=== PATIENT | female | born 1985 ===

== ENCOUNTER 2016-08-13 18:25 | Emergency (ER) | payer MEDICAID ==
[2016-08-13 18:37] VITALS: BP 128/73; PULSE 79; RESP 16; TEMP 98; O2SAT 98; BMI 27.4
[2016-08-13] MEDS ORDERED: Sodium Chloride 0.9% 1,000 ML IV STA (19:12)
[2016-08-13 19:46] LABS: URINE BILIRUBIN NEGATIVE (NEGATIVE); URINE BLOOD TRACE-INTACT (NEGATIVE); URINE GLUCOSE (UA) NEGATIVE (NEGATIVE); URINE LEUKOCYTE ESTERASE NEGATIVE Leu/uL (NEGATIVE); URINE NITRATE NEGATIVE (NEGATIVE); URINE PROTEIN NEGATIVE mg/dL (<30 mg/dL); URINE UROBILINOGEN 0.2 E.U./dL (<1 E.U./dL)
[2016-08-13 19:48] LABS: URINE APPEARANCE CLEAR (CLEAR); URINE COLOR YELLOW (YELLOW)
[2016-08-13 19:53] LABS: BASO # 0.04 K/mm3 (0.0-2.0); BASO % 0.4 % (0.0-3.0); EOS # 0.2 (0.0-0.7); EOS % 1.8 % (1.5-5.0); GRAN % 59.6 % (50.0-68.0); HEMOGLOBIN 11.9 gm/dL (12.0-16.0); LYMPH # 3.4 (1.2-3.4); LYMPH % 31.3 % (22.0-35.0); MEAN CELL VOLUME 90.4 fL (80.0-105.0); MEAN CORPUSCULAR HEMOGLOBIN 31.7 pg (25.0-35.0); MEAN CORPUSCULAR HGB CONC 35.1 g/dl (31.0-37.0); MEAN PLATELET VOLUME 10.6 fl (7.0-11.0); MONO # 0.7 (0.1-0.6); MONO % 6.9 % (1.0-6.0); PLATELET COUNT 303 10^3/uL (120.0-450.0); RBC 3.75 10^6/uL (3.5-6.1); RED CELL DISTRIBUTION WIDTH 12.3 % (11.5-14.5); WHITE BLOOD COUNT 10.7 10^3/ul (4.5-11.0)
[2016-08-13 19:56] LABS: URINE BACTERIA FEW (NEG); URINE EPITHELIAL CELLS MANY /hpf (0-5); URINE RBC 0 - 2 /hpf (0-2); URINE WBC 0 - 2 /hpf (0-6)
[2016-08-13 20:02] LABS: ALB/GLOB RATIO 1.1 (1.1-1.8); ALBUMIN 3.9 g/dL (3.0-4.8); ALT/SGPT 23 U/L (7-56); AST/SGOT 16 U/L (15-39); BLOOD UREA NITROGEN 14 mg/dL (7-21); CALCIUM 9.4 mg/dL (8.4-10.5); GFR AFRICAN-AMERICAN > 60; GFR NON-AFRICAN AMERICAN > 60; LIPASE 43 U/L (23-300)
--- NOTE | 2016-08-13 21:05 | US ---
EXAM: US First Trimester, Transabdominal CLINICAL HISTORY: 31 years old, female; Pain; complicated by abdominal or pelvic pain; Lower; First trimester; Gestational age or lmp: 10 weeks 3 days; ; Additional info: Vaginal bleeding TECHNIQUE: Real-time transabdominal obstetrical ultrasound of the maternal pelvis and a first trimester with image documentation. COMPARISON: No relevant prior studies available. FINDINGS: Gestation: Single live intrauterine gestation. heart rate of 149 beats per minute. [place]-rump length of 3.49 cm, correlating with gestational age of 10 weeks 3 days. Uterus/cervix: No subchorionic hemorrhage. Cervical length = 3.7 cm. Trace fluid within cervical canal. Probable nabothian cyst. Ovaries: Normal ovaries. No adnexal masses. Free fluid: No significant free fluid. IMPRESSION: 1. Single live intrauterine gestation. 2. Incidental/non-acute findings are described above. EXAM: US , Transvaginal CLINICAL HISTORY: 31 years old, female; Pain; complicated by abdominal or pelvic pain; Lower; First trimester; Gestational age or lmp: 10 weeks 3 days; ; Additional info: Vaginal bleeding TECHNIQUE: Real-time transvaginal obstetrical ultrasound of the maternal pelvis and a first trimester with image documentation. Transvaginal imaging was used for better evaluation of the fetus and adnexa. COMPARISON: No relevant prior studies available. FINDINGS: Gestation: Single live intrauterine gestation. heart rate of 149 beats per minute. [place]-rump length of 3.49 cm, correlating with gestational age of 10 weeks 3 days. Uterus/cervix: No subchorionic hemorrhage. Cervical length = 3.7 cm. Trace fluid within cervical canal. Probable nabothian cyst. Ovaries: Normal ovaries. No adnexal masses. Free fluid: No significant free fluid.
--- NOTE | 2016-08-13 21:46 | ED PDOC ---
Arrival/HPI - General Chief Complaint: Abdominal Pain Time Seen by Provider: 08/13/16 19:06 Historian: Patient - History of Present Illness Narrative History of Present Illness (Text): 08/13/16 21:42 A 31 year old female with A0 presents to the emergency department complaining of lower abdominal pressure since earlier today. Patient reports minimal vaginal spotting. Patient notes nausea but denies any fever, chills, vomiting, diarrhea, abdominal pain, frequency, dysuria, hematuria, chest pain, shortness of breath, cough or any other complaints. Time/Duration: Other (today) Symptom Course: Unchanged Quality: Other Context: Home Past Medical History - Provider Review Nursing Documentation Reviewed: Yes - Psychiatric Hx Substance Use: No Family/Social History - Physician Review Nursing Documentation Reviewed: Yes Family/Social History: No Known Family HX Smoking Status: Never Smoked Hx Alcohol Use: No Hx Substance Use: No Allergies/Home Meds Allergies/Adverse Reactions: Allergies mushroom Allergy (Verified 08/13/16 18:37) REDNESS Penicillins Allergy (Verified 08/13/16 18:37) REDNESS Home Medications: Home Meds Medication Instructions Recorded Confirmed Vit No.126/Iron/Folic 1 tab PO DAILY 08/13/16 08/13/16 [Classic Tablet] Review of Systems - Physician Review All systems were reviewed & negative as marked: Yes - Review of Systems Constitutional: absent: Fevers, Night Sweats Respiratory: absent: SOB, Cough Cardiovascular: absent: Chest Pain Gastrointestinal: Abdominal Pain, Nausea. absent: Diarrhea, Vomiting Genitourinary Female: Other (Vaginal spotting). absent: Dysuria, Frequency, Hematuria, Urine Output Changes Physical Exam Vital Signs Reviewed: Yes Vital Signs Temp Pulse Resp BP Pulse Ox 08/13/16 18:32 98.0 F 79 16 128/73 98 Temperature: Afebrile Blood Pressure: Normal Pulse: Regular Respiratory Rate: Normal Appearance: Positive for: Well-Appearing, Non-Toxic, Comfortable Pain Distress: None Mental Status: Positive for: Alert and Oriented X 3 - Systems Exam Head: Present: Atraumatic, Normocephalic Pupils: Present: PERRL Extroacular Muscles: Present: EOMI Conjunctiva: Present: Normal Mouth: Present: Moist Mucous Membranes Neck: Present: Normal Range of Motion Respiratory/Chest: Present: Clear to Auscultation, Good Air Exchange. No: Respiratory Distress, Accessory Muscle Use Cardiovascular: Present: Regular Rate and Rhythm, Normal S1, S2. No: Murmurs Abdomen: Present: Normal Bowel Sounds. No: Tenderness, Distention, Peritoneal Signs Back: Present: Normal Inspection Upper Extremity: Present: Normal Inspection. No: Cyanosis, Edema Lower Extremity: Present: Normal Inspection. No: Edema Neurological: Present: GCS=15, CN II-XII Intact, Speech Normal Skin: Present: Warm, Dry, Normal Color. No: Rashes Psychiatric: Present: Alert, Oriented x 3, Normal Insight, Normal Concentration Medical Decision Making ED Course and Treatment: 08/13/16 21:42 Impression: A 31 year old female approximately 10 weeks with lower abdominal pressure and vaginal spotting. Plan: -- OB Transvaginal ultrasound -- Labs -- Urine culture and Urinalysis -- Reglan and IV fluids -- Reassess and disposition Progress Notes: Report Date : 08/13/2016 21:05:00 EXAM: US , Transvaginal Dictator: Ildefonso Chu MD IMPRESSION: 1. Single live intrauterine gestation. 2. Incidental/non-acute findings are described above. - Lab Interpretations Lab Results: 08/13/16 19:40 08/13/16 19:40 Lab Results 08/13/16 19:40: Beta HCG, Quant [id number] H 08/13/16 19:40: Sodium 135, Potassium 3.6, Chloride 103, Carbon Dioxide 24, Anion Gap 12, BUN 14, Creatinine 0.6, Est GFR ( Amer) > 60, Est GFR (Non- Af Amer) > 60, Random Glucose 96, Calcium 9.4, Total Bilirubin 0.2, AST 16, ALT 23, Alkaline Phosphatase 54, Total Protein 7.4, Albumin 3.9, Globulin 3.5, Albumin/Globulin Ratio 1.1, Lipase 43 08/13/16 19:40: WBC 10.7, RBC 3.75, Hgb 11.9 L, Hct 33.9 L, MCV 90.4, MCH 31.7, MCHC 35.1, RDW 12.3, Plt Count 303, MPV 10.6, Gran % 59.6, Lymph % (Auto) 31.3, [place] % (Auto) 6.9 H, Eos % (Auto) 1.8, Baso % (Auto) 0.4, Gran # 6.40, Lymph # 3.4, [place] # 0.7 H, Eos # 0.2, Baso # 0.04 08/13/16 19:19: Urine Color Yellow, Urine Appearance Clear, Urine pH 6.0, Ur Specific [place] >= 1.030, Urine Protein Negative, Urine Glucose (UA) Negative, Urine Ketones Negative, Urine Blood Trace-intact H, Urine Nitrate Negative, Urine Bilirubin Negative, Urine Urobilinogen 0.2, Ur Leukocyte Esterase Negative , Urine RBC 0 - 2, Urine WBC 0 - 2, Ur Epithelial Cells Many, Urine Bacteria Few I have reviewed the lab results: Yes - RAD Interpretation Radiology Orders: 08/13/16 19:16 OB TRANSVAGINAL [US] Stat - Medication Orders Current Medication Orders: Discontinued Medications Sodium Chloride (Sodium Chloride 0.9%) 1,000 mls @ 1,000 mls/hr IV .Q1H STA Stop: 08/13/16 20:11 Last Admin: 08/13/16 20:22 Dose: 1,000 mls/hr Metoclopramide HCl (Reglan) 10 mg IVP STAT STA Stop: 08/13/16 19:52 Last Admin: 08/13/16 20:16 Dose: 10 mg - Scribe Statement The provider has reviewed the documentation as recorded by the Josh Gar Provider Scribe Attestation: All medical record entries made by the Scribe were at my direction and personally dictated by me. I have reviewed the chart and agree that the record accurately reflects my personal performance of the history, physical exam, medical decision making, and the department course for this patient. I have also personally directed, reviewed, and agree with the discharge instructions and disposition. Disposition/Present on Arrival - Present on Arrival Any Indicators Present on Arrival: No History of DVT/PE: No History of Uncontrolled Diabetes: No Urinary Catheter: No History of Decub. Ulcer: No History Surgical Site Infection Following: None - Disposition Have Diagnosis and Disposition been Completed?: Yes Diagnosis: Threatened Disposition: ELOPEMENT - ER ONLY Disposition Time: 20:30 Condition: GOOD Discharge Instructions (ExitCare): Threatened Miscarriage (ED) Additional Instructions: Thank you for letting us take care of you today. Your provider was Dr. Estrada. The emergency medical care you received today was directed at your acute symptoms. If you were prescribed any medication, please fill it and take as directed. It may take several days for your symptoms to resolve. Return to the Emergency Department if your symptoms worsen, do not improve, or if you have any other problems. Please contact your doctor or call one of the physicians/clinics you have been referred to that are listed on the Patient Visit Information form that is included in your discharge packet. Bring any paperwork you were given at discharge with you along with any medications you are taking to your follow up visit. Our treatment cannot replace ongoing medical care by a primary care provider (PCP) outside of the emergency department. Thank you for allowing the [facility] team to be part of your care today. Follow up with your DIPLOMATIC OFFICER doctor in 2-3 days for re-evaluation. Referrals: Aki Bledsoe, [Primary Care Provider] - Follow up with primary
== END 2016-08-13 20:26 | disposition left against medical advice (07) ==
LOC: MERGE 18:25 → ED 18:25
DX: O20.0 Threatened abortion (principal); Z3A.10 10 weeks gestation of pregnancy
CPT/HCPCS: 76817; 80053; 81001; 83690; 84702; 85025; 87086; 96361; 96374; 99284; J2765; J7040

== ENCOUNTER 2018-06-28 00:23 | Emergency (ER) | payer MEDICAID ==
[2018-06-28 00:23] VITALS: BMI 27.4
[2018-06-28 00:46] VITALS: TEMP 98.4
[2018-06-28] MEDS ORDERED: Morphine 2 mg/ml ISec IVP STA ×2 (01:20→02:38)
--- NOTE | 2018-06-28 01:42 | ED PDOC ---
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 Patient states she was at home when from the 2nd story a guardrail made of wooden sticks hit her on the right side of her adventist. Patient states since than she has been having a throbbing headache located in that certain direction. Patient took 2 tylenol tablets with no relief at home. Patient states that she is having sensitivity to light and a 9/10 pain in her head. Denies fevers, chills, lightheadedness, dizziness, cp, sob, n/v, constipation or diarrhea, and dysuria. <Leah Johnson - Last Filed: 06/28/18 04:16> - General Chief Complaint: Headache Time Seen by Provider: 06/28/18 00:25 Past Medical History - Infectious Disease Hx of Infectious Diseases: None - Cardiac Hx Cardiac Disorders: No - Pulmonary Hx Respiratory Disorders: No - Neurological Hx Neurological Disorder: Yes Hx Migraine: Yes Other/Comment: "blood clot in brain" - HEENT Hx HEENT Disorder: No - Renal Hx Renal Disorder: No - Endocrine/Metabolic Hx Endocrine Disorders: No - Hematological/Oncological Hx Blood Disorders: No - Integumentary Hx Dermatological Disorder: No - Musculoskeletal/Rheumatological Hx Musculoskeletal Disorders: No - Gastrointestinal Hx Gastrointestinal Disorders: No - Genitourinary/Gynecological Hx Genitourinary Disorders: No - Psychiatric Hx Psychophysiologic Disorder: No Hx Substance Use: No - Surgical History Hx Appendectomy: Yes Hx Section: Yes - Anesthesia Hx Anesthesia: Yes Hx Anesthesia Reactions: No Hx Malignant Hyperthermia: No <Leah Johnson - Last Filed: 06/28/18 04:16> Family/Social History Family/Social History: No Known Family HX Smoking Status: Heavy Smoker > 10 Cigarettes Daily Hx Alcohol Use: No Hx Substance Use: No <Leah Johnson - Last Filed: 06/28/18 04:16> Allergies/Home Meds <Lanre Christiansen - Last Filed: 06/28/18 03:49> <Leah Johnson - Last Filed: 06/28/18 04:16> Allergies/Adverse Reactions: Allergies house dust Allergy (Verified 06/28/18 00:47) COUGH mushroom Allergy (Verified 06/28/18 00:47) COUGH Penicillins Allergy (Verified 06/28/18 00:47) RASH Review of Systems - Review of Systems Constitutional: Normal. absent: Fatigue, Weight Change Eyes: Photophobia ENT: Normal. absent: Hearing Changes, Tinnitus, TMJ Pain Respiratory: Normal. absent: SOB, Cough, Sputum Cardiovascular: Normal. absent: Chest Pain, Palpitations, Edema Gastrointestinal: Normal. absent: Abdominal Pain, Stool Changes, Constipation, Diarrhea, Nausea, Vomiting, Appetite Changes Genitourinary Female: Normal. absent: Dysuria, Frequency, Hematuria, Urine Output Changes Musculoskeletal: Normal. absent: Arthralgias, Back Pain, Neck Pain Skin: Normal. absent: Rash, Pruritis, Skin Lesions Neurological: Headache. absent: Normal, Dizziness, Focal Weakness Psychiatric: Normal. absent: Anxiety, Depression <Leah Johnson - Last Filed: 06/28/18 04:16> Physical Exam Vital Signs Temp Pulse Resp BP Pulse Ox 06/28/18 00:43 98.4 F 66 16 98/69 L 99 <Lanre Christiansen - Last Filed: 06/28/18 03:49> Vital Signs Reviewed: Yes Vital Signs Temp Pulse Resp BP Pulse Ox 06/28/18 00:43 98.4 F 66 16 98/69 L 99 Temperature: Afebrile Blood Pressure: Normal Pulse: Regular Respiratory Rate: Normal Appearance: Positive for: Non-Toxic, Uncomfortable. No: Well-Appearing, Comfortable, Ill-Appearing Pain Distress: Moderate Mental Status: Positive for: Alert and Oriented X 3 - Systems Exam Head: Present: Normocephalic, Tenderness, Swelling. No: Ecchymosis, Abrasion, Laceration Pupils: Present: PERRL. No: Sluggish Extroacular Muscles: Present: EOMI. No: Gaze Palsy Conjunctiva: Present: Normal Mouth: Present: Moist Mucous Membranes Neck: Present: Normal Range of Motion. No: Meningeal Signs, JVD Respiratory/Chest: Present: Clear to Auscultation, Good Air Exchange. No: Respiratory Distress, Accessory Muscle Use, Wheezes Cardiovascular: Present: Regular Rate and Rhythm, Normal S1, S2 Abdomen: Present: Normal Bowel Sounds. No: Tenderness, Distention Upper Extremity: Present: Normal Inspection. No: Cyanosis, Edema, Swelling, Temperature Abnormalties Lower Extremity: Present: Normal Inspection. No: Edema, CALF TENDERNESS Neurological: Present: GCS=15, CN II-XII Intact, Speech Normal Skin: Present: Warm, Dry, Normal Color. No: Rashes Psychiatric: Present: Alert, Oriented x 3, Normal Insight, Normal Concentration <Leah Johnson - Last Filed: 06/28/18 04:16> Medical Decision Making ED Course and Treatment: Impression: Pt seen and evaluated with medical front desk coordinator. Aware and agree with HPI, clinical findings, plan, and management. Pt presented for headache after being hit in the head with a guardrail. Plan: -- CT Head w/o contrast -- Labs -- IV fluids -- Morphine -- Reassess and disposition - RAD Interpretation Narrative RAD Interpretations (Text): CT Head: Mild chronic mucosal inflammatory changes of the ethmoid air cells. Normal size of the ventricles and extra-axial spaces for the patient's age. Normal white matter tracts of the supratentorial brain. Normal basal ganglia and thalami. Normal brainstem. Normal cerebellum. There is no demonstrated extra-axial, intraparenchymal, or intraventricular hemorrhage. There are no findings of an acute ischemic infarction. Normal calvarium. There is no demonstrated fracture. Normal soft tissue structures. Normal remaining visualized paranasal sinuses. IMPRESSION: Normal unenhanced CT scan of the brain. Mild chronic mucosal inflammatory changes of the ethmoid air cells. Electronically signed on June 28, 2018 3:42:50 AM EDT by: Josafat Valdez M.D., Certified by LINO, MSK, Neuroradiology Radiology Orders: 06/28/18 01:20 HEAD W/O CONTRAST [CT] Stat Base Filler: Radiologist - Medication Orders Current Medication Orders: Sodium Chloride (Sodium Chloride 0.9%) 1,000 mls @ 100 mls/hr IV .Q10H NANCY Discontinued Medications Morphine Sulfate (Morphine) 2 mg IVP STAT STA Stop: 06/28/18 01:21 Last Admin: 06/28/18 01:33 Dose: 2 mg MAR Pain Assessment Document 06/28/18 01:33 CNR (Rec: 06/28/18 01:34 CNR [id number]) Pain Reassessment Is this a pain reassessment? 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 Patient states she was at home when from the 2nd story a guardrail made of wooden sticks hit her on the right side of her adventist Plan -CBC -CMP -Morphine -CT head -urine -NS -Reglan -Benadryl -Ibuprofen Prior Visits All prior documentation and lab work reviewed prior to this evaluation Progress Notes pending CT imaging, family requested blood work and imaging at bedside (educated family that this was not necessary but they persisted) will reassess pain after morphine and imaging completed 06/28/18 02:48 Patient continues to have pain; administered Reglan, Benadryl, Ibuprofen 06/28/18 04:10 Patient re-evaluated at bedside and was seen to be sleeping comfortably CT head resulted with no acute pathology Will d/c with oral pain meds Re-evaluation Time: 04:10 Reassessment Condition: Improved - Lab Interpretations Lab Results: 06/28/18 01:30 06/28/18 01:30 Lab Results 06/28/18 01:30: Sodium 143, Potassium 3.8, Chloride 108 H, Carbon Dioxide 27, Anion Gap 11, BUN 8, Creatinine 0.7, Est GFR ( Amer) > 60, Est GFR (Non- Af Amer) > 60, Random Glucose 102, Calcium 9.2, Total Bilirubin 0.3, AST 19, ALT 21, Alkaline Phosphatase 69, Total Protein 7.2, Albumin 3.9, Globulin 3.3, Albumin/Globulin Ratio 1.2 06/28/18 01:30: WBC 11.0, RBC 3.91, Hgb 12.2, Hct 36.6, MCV 93.6, MCH 31.2, MCHC 33.3, RDW 13.4, Plt Count 354, MPV 10.2, Neut % (Auto) 48.2 L, Lymph % (Auto) 44.6 H, [place] % (Auto) 4.2, Eos % (Auto) 2.2, Baso % (Auto) 0.8, Lymph # (Auto) 4.9 H, [place] # (Auto) 0.5, Eos # (Auto) 0.2, Baso # (Auto) 0.09, Absolute Neuts (auto) 5.29 I have reviewed the lab results: Yes Interpretation: No clinic. lab abnormalty - RAD Interpretation Radiology Orders: 06/28/18 01:20 HEAD W/O CONTRAST [CT] Stat - Medication Orders Current Medication Orders: Discontinued Medications Morphine Sulfate (Morphine) 2 mg IVP STAT STA Stop: 06/28/18 01:21 Last Admin: 06/28/18 01:33 Dose: 2 mg MAR Pain Assessment Document 06/28/18 01:33 CNR (Rec: 06/28/18 01:34 CNR [place] [id number]) Pain Reassessment Is this a pain reassessment? No IVP Administration Document 06/28/18 01:33 CNR (Rec: 06/28/18 01:34 CNR [place] [id number]) Charges for Administration # of IVP Administrations 1 <Leah Johnson - Last Filed: 06/28/18 04:16> - PA / BILLBOARD INSTALLER / Resident Statement JENIFER has reviewed & agrees with the documentation as recorded. JENIFER has examined the patient and agrees with the treatment plan. <Lanre Christiansen - Last Filed: 06/28/18 03:49> Disposition/Present on Arrival <Lanre Christiansen - Last Filed: 06/28/18 03:49> - Present on Arrival Any Indicators Present on Arrival: No History of DVT/PE: No History of Uncontrolled Diabetes: No Urinary Catheter: No History of Decub. Ulcer: No History Surgical Site Infection Following: None - Disposition Have Diagnosis and Disposition been Completed?: Yes Disposition Time: 04:14 Patient Plan: Discharge <Leah Johnson - Last Filed: 06/28/18 04:16> - Disposition Diagnosis: Head injury due to trauma Disposition: HOME/ ROUTINE Patient Problems: Current Active Problems Problem Status Onset Head injury due to trauma Acute Condition: GOOD Discharge Instructions (ExitCare): Concussion in Adults Additional Instructions: 1. Please followup with primary medical doctor within 5-7 days of discharge for resolution of symptoms 2. If pain worsens please return to hospital. 3. Use ice as needed for reducing swelling for 20 minutes at a time. 4. Will be discharged with Fioricet Referrals: Roman Elizalde MD [Primary Care Provider] - Follow up with primary Forms: uchoose (Sami)
[2018-06-28] MEDS ORDERED: Sodium Chloride 0.9% 1,000 ML IV SCH (01:45)
[2018-06-28 01:48] LABS: BASO # 0.09 K/mm3 (0.0-2.0); BASO % 0.8 % (0.0-3.0); EOS # 0.2 (0.0-0.7); EOS % 2.2 % (1.5-5.0); HEMOGLOBIN 12.2 g/dL (12.0-16.0); LYMPH # 4.9 (1.2-3.4); LYMPH % 44.6 % (22.0-35.0); MEAN CELL VOLUME 93.6 fl (80.0-105.0); MEAN CORPUSCULAR HEMOGLOBIN 31.2 pg (25.0-35.0); MEAN CORPUSCULAR HGB CONC 33.3 g/dl (31.0-37.0); MEAN PLATELET VOLUME 10.2 fl (7.0-11.0); MONO # 0.5 (0.1-0.6); MONO % 4.2 % (1.0-6.0); RBC 3.91 10^6/uL (3.5-6.1); RED CELL DISTRIBUTION WIDTH 13.4 % (11.5-14.5)
[2018-06-28 01:56] LABS: ALB/GLOB RATIO 1.2 (1.1-1.8); ALBUMIN 3.9 g/dL (3.0-4.8); ALT/SGPT 21 U/L (7-56); AST/SGOT 19 U/L (14-36); BLOOD UREA NITROGEN 8 mg/dL (7-21); CALCIUM 9.2 mg/dL (8.4-10.5); GFR NON-AFRICAN AMERICAN > 60
[2018-06-28] MEDS ORDERED: DiphenhydrAMINE 50 mg/ml Inj IVP STA (02:48)
[2018-06-28 04:07] VITALS: RESP 16
[2018-06-28 04:21] VITALS: BP 99/60; PULSE 60; O2SAT 100
--- NOTE | 2018-06-28 10:46 | CT ---
Date of service: 06/28/2018 PROCEDURE: CT HEAD WITHOUT CONTRAST. HISTORY: Guardrail hit her head, r/o bleed COMPARISON: None available. TECHNIQUE: Axial computed tomography images were obtained through the head/brain without intravenous contrast. Radiation dose: Total exam DLP = 801.54 mGy-cm. This CT exam was performed using one or more of the following dose reduction techniques: Automated exposure control, adjustment of the mA and/or kV according to patient size, and/or use of iterative reconstruction technique. FINDINGS: HEMORRHAGE: No intracranial hemorrhage. BRAIN: No mass effect or edema. No atrophy or chronic microvascular ischemic changes. VENTRICLES: No hydrocephalus. CALVARIUM: Unremarkable. PARANASAL SINUSES: Mild mucosal thickening of the ethmoid air cells. MASTOID AIR CELLS: Unremarkable as visualized. No inflammatory changes. OTHER FINDINGS: None. IMPRESSION: No acute intracranial pathology identified. Preliminary impression was provided by [employer].
== END 2018-06-28 04:42 | disposition home or self-care (01) ==
LOC: ED 00:23
DX: S09.90XA Unspecified injury of head, initial encounter (principal); W20.8XXA Other cause of strike by thrown, projected or falling object, initial encounter; Y92.009 Unspecified place in unspecified non-institutional (private) residence as the place of occurrence of the external cause; F17.210 Nicotine dependence, cigarettes, uncomplicated; Z86.718 Personal history of other venous thrombosis and embolism
CPT/HCPCS: 70450; 80053; 81025; 85025; 96374; 96375; 99285; J1200; J2270; J2765; J7030

== ENCOUNTER 2018-07-02 00:44 | Emergency (ER) | payer MEDICAID ==
[2018-07-02 00:57] VITALS: BMI 27.2
[2018-07-02 01:00] VITALS: BP 115/74; RESP 18; TEMP 98.6
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
[2018-07-02] MEDS ORDERED: Sodium Chloride 0.9% 1,000 ML IV SCH (01:30)
[2018-07-02 02:20] VITALS: PULSE 82; O2SAT 98
== END 2018-07-02 02:19 | disposition home or self-care (01) ==
LOC: ED 00:44
DX: R51 Headache (principal)
CPT/HCPCS: 81025; 96374; 96375; 99285; J1885; J2765; J7030